=== PATIENT | female | born 1960 | race Caucasian/White ===

== ENCOUNTER 2024-11-11 08:41 | Emergency (ER) | payer OTHER ==
[~2024-11-11] VITALS: Ht 167.6 cm; Wt 95.2 kg
[2024-11-11] MEDS ORDERED: LEVOTHYROXINE (09:30)
[2024-11-11] MEDS ORDERED: GABAPENTIN (09:30)
[2024-11-11] MEDS ORDERED: ASPI81CH PO (09:30)
[2024-11-11] MEDS ORDERED: Lidocaine 4% 1 Patch TOP ONE (09:30)
[2024-11-11] MEDS ORDERED: CALCIUM 250-D1 EAC1 PO (09:31)
[2024-11-11] MEDS ORDERED: Ketorolac Tromethamine 15mg Vial IM ONE (09:35)
[2024-11-11] MEDS ORDERED: HYDROmorphone HCl/Pf 1MG SYR IM ONE (11:15)
[2024-11-11] MEDS ORDERED: HYDROmorphone HCl/Pf 1MG SYR ONE (11:36)
[2024-11-11] MEDS ORDERED: TIZA4 PO (11:37)
[2024-11-11] MEDS ORDERED: LIDO700A20 TOP (11:37)
== END 2024-11-11 12:00 | disposition home or self-care (01) ==
LOC: ER 08:41
DX: M54.50 Low back pain, unspecified (principal); G89.29 Other chronic pain; E03.9 Hypothyroidism, unspecified; Z79.82 Long term (current) use of aspirin; Z88.5 Allergy status to narcotic agent; Z79.899 Other long term (current) drug therapy
CPT/HCPCS: 72128; 72131; 96372; 99283-25; A9270; J1171; J1885

== ENCOUNTER 2024-12-01 19:41 | Emergency (ER) | payer OTHER ==
[~2024-12-01] VITALS: Ht 167.6 cm; Wt 95.2 kg
[~2024-12-01 19:41] MED LIST: ASPI81CH PO; CALCIUM 250-D1 EAC1 PO; GABAPENTIN; LEVOTHYROXINE; LIDO700A20 TOP; TIZA4 PO
[2024-12-01 21:21] LABS: BASOPHILS ABSOLUTE AUTO 0.08 K/mm3 (0.00-0.23); BASOPHILS PERCENT AUTO 1 % (0-2); EOSINOPHILS ABSOLUTE AUTO 0.38 K/mm3 (0.00-0.68); EOSINOPHILS PERCENT AUTO 5 % (0-6); Hematocrit 41.8 % (33.0-51.0); Hemoglobin 13.9 g/dL (11.5-16.0); IMMATURE GRAN ABSOLUTE AUTO 0.03 K/mm3 (0.00-0.10); IMMATURE GRAN PERCENT AUTO 0 % (0-1); LYMPHOCYTES ABSOLUTE AUTO 1.87 K/mm3 (0.84-5.20); LYMPHOCYTES PERCENT AUTO 23 % (21-46); MONOCYTES ABSOLUTE AUTO 0.67 K/mm3 (0.16-1.47); MONOCYTES PERCENT AUTO 8 % (4-13); Mean Corpuscular HGB Conc 33.3 g/dL (31.5-36.5); Mean Corpuscular Volume 96 fL (80-100); NEUTROPHILS ABSOLUTE AUTO 5.12 K/mm3 (1.96-9.15); NEUTROPHILS PERCENT AUTO 63 % (41-73); NRBC ABSOLUTE 0.00 K/mm3 (0.00-0.02); NRBC Auto 0.0 /100 WBC (0.0-0.2); RDW Coefficient Variation 12.4 % (11.7-14.2); RDW Standard Deviation 44.3 fL (35.1-46.3)
[2024-12-01 21:35] LABS: Alanine Aminotransfer (ALT/SGP 26.0 U/L (12-78); Albumin, Blood 4.0 g/dL (3.4-5.0); Albumin/Globulin Ratio 1.1 (0.8-1.8); Anion Gap 9.0 mmol/L (3-11); Aspartate Aminotrans (AST/SGOT 29.0 U/L (12-37); Bilirubin, Total 0.5 mg/dL (0.1-1.0); Blood Urea Nitrogen 19.0 mg/dL (8-24); CO2, Blood 26.0 mmol/L (21-32); Calcium, Blood 8.2 mg/dL (8.5-10.1); Chloride, Blood 103.0 mmol/L (98-108); Creatinine, Blood 0.79 mg/dL (0.40-1.00); Globulin, Blood 3.5 g/dL (2.2-4.0); Glucose, Blood 116.0 mg/dL (70-99); Potassium, Blood 4.3 mmol/L (3.5-5.5); Sodium, Blood 134.0 mmol/L (136-145); Total Protein, Blood 7.5 g/dL (6.4-8.2)
[2024-12-02] MEDS ORDERED: ONDA4ODT MM (00:33)
[2024-12-02] MEDS ORDERED: Ondansetron 4 MG SoluTab SL ONE (00:35)
[2024-12-02] MEDS ORDERED: RX Prepack 2 Tabs Ondansetron ODT 4MG UD ONE (01:50)
== END 2024-12-02 02:08 | disposition home or self-care (01) ==
LOC: ER 19:41
PROVIDERS: Student in an Organized Health Care Education/Training Program
DX: R11.2 Nausea with vomiting, unspecified (principal); R42 Dizziness and giddiness; T40.425A Adverse effect of tramadol, initial encounter; Z88.0 Allergy status to penicillin; Z88.5 Allergy status to narcotic agent; Z79.899 Other long term (current) drug therapy
CPT/HCPCS: 36415; 80053; 85025; 99284; A9270